=== PATIENT | female | born 1990 | race Native Hawaiian/Other Pacific Islander ===

== ENCOUNTER 2016-10-04 17:07 | Emergency (ER) | payer OTHER ==
[~2016-10-04] VITALS: Ht 162.6 cm; Wt 53.5 kg
[~2016-10-04 17:07] MED LIST: BIRTH CONTROL PILL
[2016-10-04] MEDS ORDERED: MINO100C2 PO (17:15)
--- NOTE | 2016-10-04 17:43 | NUR ---
Patient discharged to home in stable conditon. Written and verbal after care instructions given. Patient verbalizes understanding of instructions.
== END 2016-10-04 17:45 | disposition home or self-care (01) ==
LOC: ER 17:07
DX: J06.9 Acute upper respiratory infection, unspecified (principal); R09.81 Nasal congestion; Z88.0 Allergy status to penicillin; Z88.1 Allergy status to other antibiotic agents
CPT/HCPCS: A4663

== ENCOUNTER 2017-01-27 19:11 | Emergency (ER) | payer OTHER ==
[~2017-01-27] VITALS: Ht 162.6 cm; Wt 52.2 kg
[~2017-01-27 19:11] MED LIST changes: -BIRTH CONTROL PILL; +MINO100C2 PO
--- NOTE | 2017-01-27 19:45 | NUR ---
Patient walked in to ER c/o neck and shoulder pain s/p mechanical fall. Patient states she was walking down stairs in shoes with heels when she missed a step and fell down. Patient is A/O x4, ambulatory with steady gait, complains of pain to neck and shoulders. Boyfriend at bedside. To room 4B.
--- NOTE | 2017-01-27 20:12 | NUR ---
ERMD at bedside for MSE.
[2017-01-27] MEDS ORDERED: IBUPROFEN 800 MG TABLET PO ONE (20:30)
[2017-01-27] MEDS ORDERED: IBUPROFEN 800 MG TABLET ONE (20:34)
--- NOTE | 2017-01-27 21:16 | NUR ---
Patient discharged to home in stable conditon. Written and verbal after care instructions given. Patient verbalizes understanding of instructions.
== END 2017-01-27 21:17 | disposition home or self-care (01) ==
LOC: ER 19:15
DX: S96.912A Strain of unspecified muscle and tendon at ankle and foot level, left foot, initial encounter (principal); S16.1XXA Strain of muscle, fascia and tendon at neck level, initial encounter; F07.81 Postconcussional syndrome; G44.309 Post-traumatic headache, unspecified, not intractable; W10.9XXA Fall (on) (from) unspecified stairs and steps, initial encounter; Y93.89 Activity, other specified; Y92.89 Other specified places as the place of occurrence of the external cause; Y99.9 Unspecified external cause status
CPT/HCPCS: 70450; 72125; 73660; A4663

== ENCOUNTER 2017-01-31 15:25 | Emergency (ER) | payer OTHER ==
[~2017-01-31] VITALS: Ht 162.6 cm; Wt 53.5 kg
[2017-01-31] MEDS ORDERED: HYDR-552 PO (15:39)
--- NOTE | 2017-01-31 16:16 | NUR ---
Patient discharged to home in stable conditon. Written and verbal after care instructions given. Patient verbalizes understanding of instructions.pt walks in steadygait Addendum: 01/31/17 at 1618 by FAYE pt accompanied byso, not driving
== END 2017-01-31 16:19 | disposition home or self-care (01) ==
LOC: ER 16:00
DX: S16.1XXA Strain of muscle, fascia and tendon at neck level, initial encounter (principal); S06.0X9A Concussion with loss of consciousness of unspecified duration, initial encounter; W01.0XXA Fall on same level from slipping, tripping and stumbling without subsequent striking against object, initial encounter; Y93.89 Activity, other specified; Y99.8 Other external cause status; Y92.89 Other specified places as the place of occurrence of the external cause
CPT/HCPCS: 99281; A4663

== ENCOUNTER 2017-08-14 18:52 | Emergency (ER) | payer OTHER ==
[~2017-08-14] VITALS: Ht 162.6 cm; Wt 54.4 kg
[~2017-08-14 18:52] MED LIST changes: +HYDR-552 PO
--- NOTE | 2017-08-14 20:08 | NUR ---
PT IN BED. PT DENIES ANY DIFFICULTIES BREATHING. C/O RASH UNDER LT ARM X 1 WK.
--- NOTE | 2017-08-14 20:20 | NUR ---
PT IN BED. MD HELMS AT BEDSIDE CONDUCTING MED EVAL.
--- NOTE | 2017-08-14 20:38 | NUR ---
Patient discharged to home in stable conditon. Written and verbal after care instructions given. Patient verbalizes understanding of instructions. Patient able to ambulate assisted with steady gait. Patient left with all her belongings.
[2017-08-14 20:45] VITALS: BP 114/72
== END 2017-08-14 20:38 | disposition home or self-care (01) ==
LOC: ER 18:54
DX: L73.9 Follicular disorder, unspecified (principal); Z88.0 Allergy status to penicillin; Z88.1 Allergy status to other antibiotic agents; Z79.891 Long term (current) use of opiate analgesic; Z79.899 Other long term (current) drug therapy
CPT/HCPCS: A4663

== ENCOUNTER 2017-08-31 20:38 | Emergency (ER) | payer OTHER ==
[~2017-08-31] VITALS: Ht 165.1 cm; Wt 54.4 kg
[2017-08-31] MEDS ORDERED: BIRTHCONTROL (20:58)
--- NOTE | 2017-08-31 21:05 | NUR ---
Patient ambulated to ER, c/o rash on left armpit, sore, itchy, reddish bumps. Patient reports was in the ER before and has taken antibiotics but did not make the rash go away.
--- NOTE | 2017-08-31 21:09 | NUR ---
Dr. Mackenzie at bedside for MSE.
[2017-08-31] MEDS ORDERED: SULFAMETH/TRIMETH 800/160 MG TABLET PO ONE (21:15)
[2017-08-31] MEDS ORDERED: MUPIROCIN 2% OINT 22 GM TUBE TP ONE (21:15)
[2017-08-31] MEDS ORDERED: MUPIROCIN 2% OINT 22 GM TUBE ONE (21:19)
[2017-08-31] MEDS ORDERED: SULFAMETH/TRIMETH 800/160 MG TABLET ONE (21:20)
--- NOTE | 2017-08-31 21:24 | NUR ---
Patient discharged to home in stable conditon. Written and verbal after care instructions given. Patient verbalizes understanding of instructions. Patient ambulated out of ER with steady gait, no acute signs of distress, VSS.
[2017-08-31 21:27] VITALS: BP 116/84
== END 2017-08-31 21:27 | disposition home or self-care (01) ==
LOC: ER 20:47
DX: L73.9 Follicular disorder, unspecified (principal); Z88.0 Allergy status to penicillin; Z88.1 Allergy status to other antibiotic agents; Z79.3 Long term (current) use of hormonal contraceptives
CPT/HCPCS: A4663

== ENCOUNTER 2018-01-26 12:51 | Emergency (ER) | payer OTHER ==
[~2018-01-26] VITALS: Ht 165.1 cm; Wt 54.4 kg
[~2018-01-26 12:51] MED LIST changes: +BIRTHCONTROL; -HYDR-552 PO; -MINO100C2 PO
--- NOTE | 2018-01-26 13:22 | NUR ---
PT IS IN ROOM #2B. DR SHAH EVALUATED THE PT.
--- NOTE | 2018-01-26 13:57 | NUR ---
PT WAS D/C TO HOME BY DR SHAH. D/C INSTRUCTIONS GIVEN TO THE PT BY DR SHAH.
[2018-01-26 13:59] VITALS: BP 129/76
== END 2018-01-26 14:00 | disposition home or self-care (01) ==
LOC: ER 12:51
DX: J02.9 Acute pharyngitis, unspecified (principal); Z88.0 Allergy status to penicillin; Z88.1 Allergy status to other antibiotic agents
CPT/HCPCS: 36415; 86403; 87070; A4663

== ENCOUNTER 2018-03-20 12:55 | Emergency (ER) | payer OTHER ==
[~2018-03-20] VITALS: Ht 162.6 cm; Wt 54.4 kg
[2018-03-20] MEDS ORDERED: GADODIAMIDE 2.5 MMOL/5 ML VIAL IV ONE (12:56)
[2018-03-20] MEDS ORDERED: IV NORMAL SALINE 250 ML IV ONE (13:20)
[2018-03-20] MEDS ORDERED: NORMAL SALINE FLUSH 10 ML DISP.SYRIN ONE (13:20)
[2018-03-20] MEDS ORDERED: SWABABLE VALVE TRANSFER SET EA MC ONE (13:20)
[2018-03-20] MEDS ORDERED: IOHEXOL 350 100 ML INFUS..BTL ONE (13:20)
[2018-03-20 13:37] LABS: BASOPHILS % (AUTO) 0.4 % (0.0-2.0); EOSINOPHILS % (AUTO) 0.6 % (0.0-7.0); HEMATOCRIT 42.6 % (31.2-41.9); HEMOGLOBIN 14.5 g/dL (10.9-14.3); LYMPHOCYTES # (AUTO) 1.5 K/uL (20.0-40.0); MEAN CORPUSCULAR HGB CONC 34 g/dL (32.3-35.6); MEAN CORPUSCULAR VOLUME 91.1 fL (75.5-95.3); MONOCYTES # (AUTO) 0.3 K/uL (2.0-10.0); MONOCYTES % (AUTO) 5.3 % (0.0-11.0); NEUTROPHILS # (AUTO) 4.2 K/uL (1.8-8.9); NEUTROPHILS % (AUTO) 68.7 % (38.5-71.5); PLATELET COUNT (AUTO) 302 K/uL (179-408); RED BLOOD CELL COUNT(AUTO) 4.68 MIL/uL (3.63-4.92); WHITE BLOOD COUNT (AUTO) 6.2 K/uL (3.8-11.8)
[2018-03-20 13:41] LABS: CREATININE 0.7 mg/dL (0.6-1.3); POTASSIUM 3.6 mmol/L (3.5-5.1)
[2018-03-20 13:41] LABS: *URINE HCG, QUAL NEGATIVE (NEGATIVE)
--- NOTE | 2018-03-20 15:30 | NUR ---
all tests completed, pt to have mri.
[2018-03-20] MEDS ORDERED: HYDROCODONE/APAP 5-325MG TABLET PO ONE ×2 (16:15→19:30)
[2018-03-20] MEDS ORDERED: HYDROCODONE/APAP 5-325MG TABLET ONE ×2 (16:45→19:37)
--- NOTE | 2018-03-20 19:04 | NUR ---
mri has been arranged, belt picker at 2029. sbar report to mechelle cain. pt comfortable , no distress noted.
--- NOTE | 2018-03-20 19:19 | NUR ---
Pt awake, alert, oriented x3. No sob noted. No s/sx of distress noted. Resp even and unlabored. Able to move neck on all directions but with tenderness to L side. Denies radiation of pain. Pt stated she is now able to use her L arm. Pt stated that the reason she came to the ED is because she felt that her L arm was very weak this morning, which is now resolved. Equal strengths to BUE, BLE noted. Denies any visual disturbance, nausea, vomiting, dizziness or headache at this time. C/O 6/10 L neck pressure, nonradiating. Made MD aware. Will cont to monitor. Call light within reach.
--- NOTE | 2018-03-20 20:26 | NUR ---
Flushed IV to RAC 18g well. No complications. Pt marko procedure well. Will cont to monitor.
--- NOTE | 2018-03-20 20:29 | NUR ---
Pain 3/10 . Pt is feeling better.
--- NOTE | 2018-03-20 23:10 | NUR ---
Pt back from MRI transfer. Addendum: 03/20/18 at 2311 by MBILLONES Pt is awake, alert, oriented x3. No sob noted. No s/sx of distress noted. Resp even and unlabored. SO at bedside. Pt feels okay with pain at this time. Will cont to monitor.
--- NOTE | 2018-03-20 23:36 | NUR ---
Ok to drink fluids per MD. Water given to patient.
--- NOTE | 2018-03-21 00:36 | NUR ---
Patient discharged to home in stable conditon. Written and verbal after care instructions given. Patient verbalizes understanding of instructions. IV RAC 18g discontinued d/t completed therapy. Light pressure to site with gauze and tape applied. No complications. Pt marko procedure well.
== END 2018-03-21 00:53 | disposition home or self-care (01) ==
LOC: ER 12:55
DX: R51 Headache (principal); M54.2 Cervicalgia; Z88.0 Allergy status to penicillin; Z88.1 Allergy status to other antibiotic agents
CPT/HCPCS: 36415; 70450; 70498; 70546; 70549; 70551; 72125; 80048; 84703; 85025; 99285; A4663; J3490; J7050; Q9967; 70030-TC

== ENCOUNTER 2018-11-15 19:20 | Emergency (ER) | payer OTHER ==
[~2018-11-15] VITALS: Ht 162.6 cm; Wt 52.2 kg
--- NOTE | 2018-11-15 19:33 | NUR ---
Patient came at the ER with chief complaint of left knee pain. Patient resported pain started 5 days ago, described pain as shooting pain when putting weight on left leg. Patient also reported started taking Spirinolactone x1 week ago prescribed by health counselor, but stop taking it on Thursday11/14/18 due to side effect. Patient AAOx4. In no acute distress. Denies any SOB. No cardiovascular concern. No /GI concern. Bed on lock position. Fall precaution per protocol.
--- NOTE | 2018-11-15 19:35 | NUR ---
SANDER JAUREGUI at bedside for MSE.
[2018-11-15] MEDS ORDERED: IBUPROFEN 400 MG TABLET ONE (19:45)
[2018-11-15] MEDS ORDERED: IBUPROFEN 400 MG TABLET PO ONE (19:45)
--- NOTE | 2018-11-15 19:46 | NUR ---
ct scan special procedures technologist on bedside for left knee x-ray.
--- NOTE | 2018-11-15 21:19 | NUR ---
Patient discharged to home in stable conditon. Written and verbal after care instructions given. Patient verbalizes understanding of instructions. Patient ambulate from ER with steady gait. All belongings with patient.
[2018-11-15 21:20] VITALS: BP 110/70
== END 2018-11-15 21:21 | disposition home or self-care (01) ==
LOC: ER 19:21
DX: M25.562 Pain in left knee (principal); Z88.0 Allergy status to penicillin; Z88.1 Allergy status to other antibiotic agents; Z79.899 Other long term (current) drug therapy
CPT/HCPCS: A4663

== ENCOUNTER 2019-05-15 15:28 | Emergency (ER) | payer OTHER ==
[~2019-05-15] VITALS: Ht 1645.9 cm; Wt 53.5 kg
--- NOTE | 2019-05-15 15:46 | NUR ---
ERMD at bedside for MSE
[2019-05-15] MEDS ORDERED: AZITHROMYCIN 250 MG TABLET ONE (15:49)
--- NOTE | 2019-05-15 15:57 | NUR ---
Patient discharged to home in stable conditon. Written and verbal after care instructions given. Patient verbalizes understanding of instructions. Patient ambulated with stable gait.
[2019-05-15 15:59] VITALS: BP 115/73
[2019-05-15] MEDS ORDERED: AZITHROMYCIN 250 MG TABLET PO ONE (16:00)
== END 2019-05-15 15:59 | disposition home or self-care (01) ==
LOC: ER 15:28
DX: J06.9 Acute upper respiratory infection, unspecified (principal); Z88.0 Allergy status to penicillin; Z88.1 Allergy status to other antibiotic agents; Z79.899 Other long term (current) drug therapy
CPT/HCPCS: A4663; Q0144

== ENCOUNTER 2019-08-21 13:48 | Emergency (ER) | payer OTHER ==
[~2019-08-21] VITALS: Ht 162.6 cm; Wt 54.4 kg
--- NOTE | 2019-08-21 14:10 | NUR ---
Dr Mackenzie at the bedside for MSE.
[2019-08-21 14:20] VITALS: BP 113/77
--- NOTE | 2019-08-21 14:20 | NUR ---
Patient discharged to home in stable conditon. Written and verbal after care instructions given. Patient verbalizes understanding of instructions.
== END 2019-08-21 14:22 | disposition home or self-care (01) ==
LOC: ER 13:56
DX: J06.9 Acute upper respiratory infection, unspecified (principal); Z88.0 Allergy status to penicillin; Z88.1 Allergy status to other antibiotic agents; Z79.899 Other long term (current) drug therapy
CPT/HCPCS: A4663

== ENCOUNTER 2019-09-06 20:30 | Emergency (ER) | payer OTHER ==
[~2019-09-06] VITALS: Ht 162.6 cm; Wt 54.4 kg
--- NOTE | 2019-09-06 20:42 | NUR ---
Dr. Xiao at bedside for MSE
--- NOTE | 2019-09-06 20:52 | NUR ---
Patient discharged to home in stable conditon. Written and verbal after care instructions given. Patient verbalizes understanding of instructions. Patient ambulating with steady gait. NAD noted
[2019-09-06 20:53] VITALS: BP 122/66
== END 2019-09-06 20:52 | disposition home or self-care (01) ==
LOC: ER 20:32
DX: J02.9 Acute pharyngitis, unspecified (principal); H92.02 Otalgia, left ear; R20.8 Other disturbances of skin sensation
CPT/HCPCS: A4663